=== PATIENT | female | born 1975 | race Caucasian/White ===

== ENCOUNTER 2021-11-16 03:06 | Day surgery (SDC) | payer BC, SELFPAY ==
[2021-11-09 15:41] VITALS: BMI 23.3
[2021-11-16 09:39] VITALS: BP 113/67; PULSE 65; RESP 18; TEMP 36.8; O2SAT 100; BMI 22.9
--- NOTE | 2021-11-16 09:41 | P.PNAN_ITS ---
Anes - Initial Pre Proc Eval Procedure: Operation Date: 11/16/21 10:30 Proposed Procedures p Colonoscopy - Saul Grande MD Date/Time: 11/16/21 09:41 Surgeon: Saul Grande MD Pre Op Diagnosis: change in bowel habits Patient Data Age: 46 Gender: F Height: 1.65 m Weight: 62.6 kg Last Vital Signs Temp 36.8 C 11/16/21 09:39 Pulse 65 11/16/21 09:39 Resp 18 11/16/21 09:39 BP 113/67 11/16/21 09:39 Pulse Ox 100 11/16/21 09:39 Allergies Allergy/AdvReac Type Severity Reaction Status Date / Time No Known Allergies Allergy Verified 11/16/21 09:38 Home Medications Medication Instructions Recorded Confirmed Type bromfenac [Prolensa] 1 drp EACH EYE HS 11/09/21 11/16/21 History prednisolone acetate [Omnipred] 2 drp EACH EYE Q12H 11/09/21 11/16/21 History Patient hx anesthesia problems: none Family hx anesthesia problems: none Results Review: All pre-operative results and documents have been reviewed as part of the pre-operative evaluation. [facility] Surgical History Surgical History (Updated 11/16/21 @ 07:46 by Percy Medellin DO) History of Social History Social History Smoking packs per day: 0.5 Smoking cigarettes per day: 10.0 Years smoked: 15 Smoking pack-years: 7.50 Smoking status: Former smoker Smoking end date: 12/02/08 Living arrangements: with family Spiritual care concerns: No Anes - Eval Final PreProcedure Day of Procedure 11/16/21 09:41 Patient weight: normal Heart: regular rate and rhythm Lungs: clear to auscultation and normal air movement Airway: Mallampati scale class II Neurological: alert and oriented Last oral intake: >/= 8 hours ASA classification: II Emergent: no Anesthetic plan: proceed Anesthesia type and monitoring: general GIVS and standard monitoring Results Review: All pre-operative results and documents have been reviewed as part of the pre-operative evaluation. Informed Consent: The patient's anesthetic plan and its attendant risks and benefits were discussed with the patient/family/POA. Questions were solicited and answers provided to the satisfaction of the patient/family/POA.
[2021-11-16] MEDS: LACTATED RINGERS 1,000 ML 150 ML IV CONT (09:42)
--- NOTE | 2021-11-16 10:03 | WPDGICN ---
Assessment and Plan Assessment and plan (1) Change in bowel habit: Code(s): R19.4 - Change in bowel habit Status: Acute Assessment and Plan: Patient reports a change in her bowel habit. Plan is for colonoscopy to evaluate why stools are narrow caliber. This may represent spasms. Recommend fiber supplementation to be taken routinely. Further recommendations will be given after endoscopy. GI Consult Note Consult date/time: 11/16/21 10:03 HPI: Brittany Pedraza is a 46 year old female Presents for colonoscopy. Patient has never had a colonoscopy previously. Patient reports 3 or 4 years ago had an intestinal parasite. This caused her to have significant diarrhea. This ultimately was treated with 2 courses of antibiotics with resolution of symptoms. Over the last several years however she notices a change in her bowel habits. Her chest bowel habits now have a narrow caliber to them. She denies abdominal pain she has had no weight loss. She has had no bleeding. Her family history is significant her father had Crohn's disease. No other family members have inflammatory bowel disease nor polyps nor cancer. Review of Systems Review of Systems: All systems reviewed & are unremarkable except as noted in HPI and below [facility] Surgical History Surgical History (Updated 11/16/21 @ 07:46 by Percy Medellin, ) History of Social History Social History Smoking packs per day: 0.5 Smoking cigarettes per day: 10.0 Years smoked: 15 Smoking pack-years: 7.50 Smoking status: Former smoker Smoking end date: 12/02/08 Living arrangements: with family Spiritual care concerns: No Meds Home Medications and Allergies Home Medications Medication Instructions Recorded Confirmed Type bromfenac [Prolensa] 1 drp EACH EYE HS 11/09/21 11/16/21 History prednisolone acetate [Omnipred] 2 drp EACH EYE Q12H 11/09/21 11/16/21 History Allergies Allergy/AdvReac Type Severity Reaction Status Date / Time No Known Allergies Allergy Verified 11/16/21 09:38 Vital Signs Vital Signs - 24 hr 11/16/21 09:39 Temperature 98.2 F Pulse Rate 65 Respiratory Rate 18 Blood Pressure 113/67 Pulse Oximetry 100 Exam Narrative: Physical exam reveals patient to be alert. Vital signs stable. HEENT exam is unremarkable. Patient is anicteric. Lungs are clear to auscultation and percussion. Heart is without murmur or extra sounds. Abdominal exam bowel sounds are present soft nontender with no organomegaly. Digital external rectal exam is normal.
[2021-11-16 10:33] VITALS: BP 97/53; PULSE 78; RESP 19; O2SAT 97
[2021-11-16 10:43] VITALS: BP 119/73; PULSE 75; RESP 23; O2SAT 95
[2021-11-16 10:53] VITALS: BP 128/76; PULSE 72; RESP 17; O2SAT 97
== END 2021-11-16 11:07 | disposition home or self-care (01) ==
PROVIDERS: PCP Internal Medicine; Visit Provider Internal Medicine Gastroenterology
PROC: 0DJD8ZZ Inspection of Lower Intestinal Tract, Via Natural or Artificial Opening Endoscopic (ICD-10-PCS; CPT 45378; principal; 2021-11-16 10:30)
DX: Z12.11 Encounter for screening for malignant neoplasm of colon (principal); R19.4 Change in bowel habit; Z87.891 Personal history of nicotine dependence
CPT/HCPCS: 45378; J2704; J7120

== ENCOUNTER 2023-09-11 15:51 | Outpatient (CLI) | payer BC, SELFPAY ==
--- NOTE | ~2023-09-11 | CT_ITS ---
EXAMINATION: CT soft tissue neck w con DATE: 09/11/2023 16:23 INDICATION: Right supraclavicular mass. TECHNIQUE: Computed tomography (CT) of the neck was performed with 75 mL Omnipaque-350 intravenous co ntrast. Automated exposure control and iterative reconstruction technique were employed. The dose-belen gth product was 450.69 mGy-cm. COMPARISON: None FINDINGS: There is a mucous retention cyst in right maxillary sinus. There are nodules in the thyroid measuring up to 10 mm, likely not clinically significant. There is an infiltrative mass in right sup raclavicular region measuring 6.9 x 4.9 x 3.5 cm. There are enlarged right supraclavicular lymph node s. There is mild cervical spondylosis. IMPRESSION: 1. Right supraclavicular mass and lymphadenopathy suspicious for malignancy such as lymphoma, sarcoma , or metastatic disease. Ultrasound-guided core needle biopsy is recommended. Reviewed, dictated and finalized at location A. IMPRESSION: 1. Right supraclavicular mass and lymphadenopathy suspicious for malignancy suc h as lymphoma, sarcoma, or metastatic disease. Ultrasound-guided core needle bi opsy is recommended.
[2023-09-11 16:26] LABS: Hematocrit 33.5 % (35.0-49.0); Hemoglobin 11.6 g/dL (12.0-15.0); Mean Corpuscular HGB Conc 34.6 g/dL (32.0-36.0); Mean Corpuscular Hemoglobin 30.4 pg (27.0-31.0); Mean Corpuscular Volume 87.7 fL (78.0-102.0); Mean Platelet Volume 8.8 fl (9.2-11.8); Platelet Count Result 171 K/mm3 (150-420); Red Blood Count 3.82 M/mm3 (4.20-5.40); Red Cell Distribution Width 12.5 % (11.6-14.4); White Blood Count 3.4 K/mm3 (4.8-10.8)
[2023-09-11 16:53] LABS: Alanine Aminotransferase 20 U/L (14-59); Albumin Level 3.7 g/dL (3.4-5.0); Alkaline Phosphatase 68 U/L (46-116); Anion Gap 7 mmol/L (8-16); Aspartate Amino Transferase 16 U/L (15-37); Bilirubin,Total 0.7 mg/dL (0.00-1.00); Blood Urea Nitrogen 10 mg/dL (7-18); Calcium 8.7 mg/dL (8.5-10.1); Carbon Dioxide 28 mmol/L (21-32); Chloride 102 mmol/L (98-108); Estimated Glomerular Filt Rate > 60; Glucose 74 mg/dL (70-99); Lactate Dehydrogenase 172 U/L (81-234); Osmolality Calculated 282 mOsm/kg (285-295); Potassium 3.7 mmol/L (3.5-5.1); Sodium 137 mmol/L (136-145); Total Protein 5.9 g/dL (6.4-8.2)
[2023-09-11 17:08] LABS: Band Neutrophils Percent 0 % (0-6); Basophils Percent Manual 0 % (0-1); Eosinophils Percent Manual 0 % (1-6); Lymphocytes Absolute Manual 1.12 K/mm3 (1.1-4.5); Lymphocytes Percent Manual 33 % (18-44); Monocytes Absolute Manual 0.17 K/mm3 (0.1-0.90); Monocytes Percent Manual 5 % (3-9); Neutrophils Percent Manual 62 % (46-73); Platelet Estimate Adequate (Adequate); Total Cells Counted 100
== END 2023-09-11 15:52 | disposition home or self-care (01) ==
PROVIDERS: PCP Internal Medicine; Visit Provider Internal Medicine
DX: R22.1 Localized swelling, mass and lump, neck (principal); R59.0 Localized enlarged lymph nodes
CPT/HCPCS: 36415; 70491; 80053; 83615; 85025; Q9967

== ENCOUNTER 2025-02-05 15:34 | Outpatient (CLI) | payer BC, SELFPAY ==
--- NOTE | ~2025-02-05 | XR_ITS ---
CHEST RADIOGRAPH, PA AND LATERAL CLINICAL HISTORY: Cough/congestion x2 years . COMPARISON: None available TECHNIQUE: PA and lateral views of the chest. FINDINGS The cardiomediastinal silhouette is unremarkable. The lungs are clear. Visualized osseous structures and soft tissues are unremarkable. IMPRESSION: No focal infiltrate or effusion. Reviewed, dictated and finalized at location A. RATE DEALER
--- OUTSIDE RECORDS SUMMARY | 2025-02-05 15:39 | XMS_ITS | Clinical Summary ---
Author Organization [facility] Address [address] [place] [address] Care Team Providers Care Hide Tanner Name Role Phone Freddie Evans MD Primary Care Provider [phone] Allergies No known active allergies Medications hydroCHLOROthiaz yeison 25 MG tablet Take 1 tablet (25 mg total) by mouth every morning. 10 tablet 10/09/2021 Active Family History Medical History Relation Comments Breast Cancer Maternal Grandmother Relation Status Comments Maternal Grandmother Social History Tobacco Use Types Packs/Day Years Used Date Smoking Tobacco: Former Smokeless Tobacco: Never Alcohol Use Standard Drinks/Week Comments Not Currently 0 (1 standard drink = 0.6 oz pure alcohol) stopped a few weeks ago, weekend use Comments No Sex and Gender Information Value Date Recorded Sex Assigned at Not on file Legal Sex Female 9:01 PM COOKER TENDER Gender Identity Not on file Sexual Orientation Not on file Last Filed Vital Signs Vital Sign Reading Time Taken Comments Blood Pressure 126/88 10/09/2021 2:07 PM COOKER TENDER Pulse 64 10/09/2021 2:07 PM COOKER TENDER Temperature 36.5 C (97.7 F) 10/09/2021 2:07 PM COOKER TENDER Respiratory Rate 18 10/09/2021 2:07 PM COOKER TENDER Oxygen Saturation 100% 10/09/2021 2:07 PM COOKER TENDER Inhaled Oxygen Concentration - - Weight - - Height - - Body Mass Index - - Plan of Treatment Health Maintenance Due Date Last Done Comments Cervical Cancer Screening Pap Smear (Age 30 to 64) Every 3 Years 1973 Colorectal Cancer Screening Colonoscopy (10 Years) 1973 Annual Physical 1976 DTaP, Tdap and Td Vaccines (1 - Tdap) 1992 05/17/1978, 02/27/1974, 1973, Additional history exists Hepatitis B Vaccines (1 of 3 - 19+ 3-dose series) 1992 Cervical Cancer Screening Pap with HPV Testing (Age 30 to 64) Every 5 Years 2003 Cervical Cancer Screening with HPV 2003 Zoster Vaccines (1 of 2) 2023 COVID-19 Vaccine (1 - season) 2024 Influenza Adult (#1) 2024 Mammogram Screening 10/15/2025 10/15/2023, 08/29/2022, 08/23/2021, Additional history exists Hepatitis C Completed 10/09/2021 Meningococcal B Vaccine Aged Out No l onger eligible based on patient's age to complete this topic Meningococcal Vaccine Aged Out No valentino sara eligible based on patient's age to complete this topic Pneumococcal Vaccine: Pediatrics (0 to 5 Years) and At-Risk Patients (6 to 64 Years) Aged Out No longer eligible based on patient's age to complete this topic RSV Immunizations Under 20 Months Aged Out No longer eligible based on patient's age to complete this topic Procedures Procedure Name Priority Date/Time Associated Diagnosis Comments MG SCREENING W ELSY STEVE DIGI Routine 10/15/2023 2:52 PM COOKER TENDER Breast cancer screening HEPATITIS PANEL,ACUTE STAT 10/09/2021 12:47 PM COOKER TENDER from Last 3 Months or Most Recently Relevant to Health Maintenance Results * MG SCREENING W ELSY STEVE DIGI (10/15/2023 2:52 PM COOKER TENDER) Anatomical Region Laterality Modality Breast Bilateral Mammography 10/15/2023 3:58 PM COOKER TENDER Narrative 10/15/2023 3:58 PM COOKER TENDER Examination: Digital screening mammogram with CAD. Clinical history: Asymptomatic patient presents for routine screening. Comparison: 08/29/2022, 08/23/2021, 07/11/2020, 07/08/2019, 07/04/2016. Technique: Bilateral digital mammograms. The exam was interpreted with the use of a computer-aided detection (CAD) system. Additional 3-D tomosynthesis images were acquired. Tissue density: The breast tissue contains scattered fibroglandular densities. Findings: The breast tissue contains scattered fibroglandular densities. Benign-appearing calcification noted. No suspicious mass, microcalcification or area of architectural distortion can be identified. From a mammographic standpoint, routine followup in one year would seem adequate. IMPRESSION: No suspicious change since the previous exams. Recommendation: 1: Routine Screening Bilateral in 1 Year Assessment: ACR BI-RADS 2 - BENIGN FINDING(S) Ordered By: FREDDIE EVANS Interpreted By: Jhony Bueno MD, 10/15/2023 3:58 PM Freddie Evans MD MAMMO Final Result * HEPATITIS PANEL,ACUTE (10/09/2021 12:47 PM COOKER TENDER) HEPATITIS B SURFACE AG NON-REACT DEANA NON-REACT DEANA 10/10/2021 1:29 PM COOKER TENDER [facility] Comment:HBsAg NOT DETECTED. HEP B CORE IGM NON-REACT DEANA NON-REACT DEANA 10/10/2021 1:29 PM COOKER TENDER [facility] Comment: IgM ANTI HBc NOT DETECTED. DOES NOT EXCLUDE THE POSSIBILITY OF EXPOSURE TO OR INFECTION WITH HBV. NO RETEST REQUIRED. HIGH DOSES OF BIOTIN MAY INTERFERE WITH THIS TEST RESULT. CORRELATION TO CLINICAL HISTORY AND PRESENTATION RECOMMENDED. HAV IGM NON-REACT DEANA NON-REACT DEANA 10/10/2021 1:29 PM COOKER TENDER [facility] Comment: IgM ANTI HAV NOT DETECTED. DOES NOT EXCLUDE THE POSSIBILITY OF EXPOSURE TO OR INFECTION WITH HAV. LEVELS OF IgM ANTI HAV MAY BE BELOW THE CUTOFF IN EARLY INFECTION. HEPATITIS C AB NON-REACT DEANA NON-REACT DEANA 10/10/2021 1:29 PM COOKER TENDER [facility] Comment: ANTIBODIES TO HCV NOT DETECTED. DOES NOT EXCLUDE THE POSSIBILITY OF EXPOSURE TO HCV. 10/09/2021 12:4 7 PM COOKER TENDER Alexx Thompson MD LABORATORY Final Result [facility] [address] [place] [address], [id number] from Last 3 Months or Most Recently Relevant to Health Maintenance Insurance [facility] Care Teams Hide Tanner Relationship Specialty Start Date End Date Freddie Evans MD [address] [place] [address] PCP - General INTERNAL MEDICINE 10/09/21
--- OUTSIDE RECORDS SUMMARY | 2025-02-05 15:39 | XMS_ITS | Clinical Summary ---
Author Organization [place] [id number] Address [address] [place] [address] Care Team Providers Care Blister Rust Eradicator Name Role Phone Freddie Petersen MD Primary Care Provider [phone] Abner Flowers MD Unavailable [phone] Allergies Active Allergy Reactions Criticality Noted Date Comments Rituximab Itching Low 11/27/2023 Itchy ears, resolved after 20 mg of Pepcid Medications progesterone 50 mg/mL injection Inject into the muscle as instructed daily Active progesterone (PROMETRIUM) 100 mg capsule Take 1 capsule (100 mg total) by mouth daily Dosage unsure Active acyclovir (ZOVIRAX) 400 mg tabletIndicatio ns:[place] marginal zone B-cell lymphoma (HCC) Take 1 tablet (400 mg total) by mouth 2 (two) times a day For shingles prevention. 60 tablet 11 3 Active Additional Information Patient not taking.Reported on 03/25/2024 Active Problems Problem Noted Date Diagnosed Date Chemotherapy induced nausea and vomiting 023 [place] marginal zone B-cell lymphoma 10/23/2023 Supervision of other high ri sk pregnancies, unspecified trimester 06/16/2015 Overview (09/26/2023): Abnormal maternal glucose tolerance, antepartum 06/16/2015 Twin , twins dichorionic and diamniotic 04/22/2015 Immunizations Immunization Administration Dates Next Due DTP 05/17/1978,02/27/1974,1973 ,1973 MMR 07/08/2017,08/23/2014,08/29/1999 ,11/17/1974 OPV 07/04/1987,05/17/1978,08/11/1974 ,05/25/1974 Td, adsorbed 08/29/1999,08/11/1988 Tdap 06/06/2015,08/06/2014 Varicella 08/23/2014 Surgical History Surgery Date Site/Laterality Comments WISDOM TOOTH EXTRACTION SECTION x1 TYMPANOSTOMY TUBE PLACEMENT EXTERNAL FIXATION FOOT FRACTURE Medical History Medical History Date Comments Dental disease Ear problems Family History Medical History Relation Name Comments No Known Problems Brother Autoimmune disease Father Crohn's disease Father Sleep apnea Father Pancreatic cancer Maternal Grandfather Migraines Mother Heart attack Paternal Grandfather Colon cancer Paternal Grandmother No Known Problems Sister 1 No Known Problems Sister 2 Relation Name Status Comments Brother Alive Father Alive Maternal Grandfather Maternal Grandmother Alive Mother Alive Paternal Grandfather Paternal Grandmother Sister 1 Alive Sister 2 Alive Social History Tobacco Use Types Packs/Day Years Used Date Smoking Tobacco: Former Cigarettes 1 15 Smokeless Tobacco: Never Tobacco Cessation:Counseling Given: Not Answered Comments:15 years smoked when younger, Quit 14 years, stressed smoked 5 months ago, nothing for last 2 months AUDIT-C Answer Date Recorded Q1: How often do you have a drink containing alc ohol? Monthly or less 09/26/2023 Average Number of Drinks Not on file 023 Frequency of Binge Drinking Not on file 09/02 Personal Safety Answer Date Recorded Getting School Help Needed Not on file 11/11 Comments No Sex and Gender Information Value Date Recorded Sex Assigned at Not on file Legal Sex Female 3:46 AM HORSERADISH GRINDER Gender Identity Not on file Sexual Orientation Not on file Obstetrics History Last Filed Vital Signs Vital Sign Reading Time Taken Comments Blood Pressure 107/72 04/22/2024 10:10 AM CDT Pulse 65 04/22/2024 10:10 AM CDT Temperature 36.4 C (97.5 F) 04/22/2024 10:06 AM CDT Respiratory Rate 16 04/22/2024 10:0 6 AM CDT Oxygen Saturation 99% 04/22/2024 10: 10 AM CDT Inhaled Oxygen Concentration - - Weight 71.6 kg (157 lb 12.8 oz) 024 10:06 AM CDT Height 166 cm (5' 5.35 ) 11/27/2023 9:39 AM HORSERADISH GRINDER Body Mass Index 25.98 11/27/2023 9:39 AM HORSERADISH GRINDER Plan of Treatment Health Maintenance Due Date Last Done Comments Breast Cancer Screening-Mammogram 1973 Cervical Cancer Screening 1973 Colon Cancer Screening-Colonoscopy 1973 Depression Screening 1973 Regular Well Visit/Exam 18-64 1991 Pneumococcal vaccine <65 (1 of 2 - PCV) 1992 Zoster Vaccine (1 of 2) 10/18/2014 Influenza Vaccine (#1) 2024 DTaP/Tdap/Td Vaccine (7 - Td or Tdap) 06/06/2025 06/06/2015, 08/06/2014, 08/29/1999, Additional history exists Hepatitis B Screening Completed 10/23/2023 Hepatitis C Screening Completed 10/23/2023 Procedures Procedure Name Priority Date/Time Associated Diagnosis Comments HEPATITIS C ANTIBODY Routine 10/23/2023 12:38 PM HORSERADISH GRINDER [place] marginal zone B-cell lymphoma (HCC) from Last 3 Months or Most Recently Relevant to Health Maintenance Results * Hepatitis C antibody Blood (10/23/2023 12:38 PM HORSERADISH GRINDER) Hep C Ab Nonreactive Nonreactive [facility] Comment:Antibodies to HCV no t detected. Does NOT exclude the possibility of recent exposure to HCV. Current interpretive data was last revised on 22 Blood 10/23/2023 12:3 8 PM HORSERADISH GRINDER 10/23/2023 1:14 PM HORSERADISH GRINDER Naomi Arguelles NP LAB MICROBIOLO GY - GENERAL ORDERABLES Final Result [facility] [place] [address] from Last 3 Months or Most Recently Relevant to Health Maintenance Insurance [employer] [place] [employer] [place] Care Teams Blister Rust Eradicator Relationship Specialty Start Date End Date Freddie Petersen MD PCP - General Internal Medicine 09/14/23 Abner Flowers MD [address] [facility] [address] [place] [id number] Medical Oncologist/Labor Expediter Medical Oncology 10/22/23
--- OUTSIDE RECORDS SUMMARY | 2025-02-05 15:39 | XMS_ITS | Patient Health Summary ---
Author Organization [facility] Address [address] [place] [address] Care Team Providers Care Recordist Chief Name Role Phone Unavailable Primary Care Provider Unavailabl e Note from [facility]non-owned Affiliates and Associated Physician Practices is amultiple site organization consisting of ambulatory clinics and hospital sitesin [place], [place], [place]. This disclosure is being madepursuant to the Care Everywhere program and may not contain all information available regarding this patient. Last updated 18.[facility] Allergies No known active allergies Medications * Be aware that medications may not be up to date on this document. Alwaysverify current medications with the patient. * Vit-Fe Fumarate-FA ( VITAMIN) 28-0.8 MG tablet Take 1 Tab by mouth once daily. Active Problems Problem Noted Date Diagnosed Date Abnormal maternal glucose tolerance, antepartum 06/16/2015 Supervision of other high-risk 015 Twin , twins dichorionic and diamniotic 04/22/2015 Advanced maternal age (AMA) in 015 Social History Tobacco Use Types Packs/Day Years Used Date Smoking Tobacco: Never Assessed Sex and Gender Information Value Date Recorded Sex Assigned at Not on file Gender Identity Not on file Sexual Orientation Not on file Last Filed Vital Signs Vital Sign Reading Time Taken Comments Blood Pressure 131/75 06/14/2015 1:09 PM CDT Pulse 87 04/22/2015 2:42 PM CDT Temperature - - Respiratory Rate - - Oxygen Saturation - - Inhaled Oxygen Concentration - - Weight 67.1 kg (147 lb 14.4 oz) 04/22/2015 2:42 PM CDT Height 165.1 cm (5' 5 ) 04/22/2015 2:42 PM CDT Body Mass Index 24.61 04/22/2015 2:42 PM CDT Procedures * SONOGRAM - COMPLETE(Performed 05/27/2015) Performed for screening for growth retardation using ultrasonics ([facility]), Twin , twins dichorionic and diamniotic (HCC), Advanced maternal age (AMA) in * SONOGRAM - COMPLETE(Performed 04/22/2015) Performed for screening for growth retardation using ultrasonics ([facility]), Twin , twins dichorionic and diamniotic ([facility]) Results * SONOGRAM - COMPLETE (05/27/2015 11:22 AM CDT) Only the most recent of2 resultswithin the time period is included. Anatomical Region Laterality Modality Other 05/27/2015 11:2 2 AM CDT Narrative 05/27/2015 4:11 PM CDT [facility] [place] PHONE: FAX: FETUS A Pat. Name: NAOMI HENDRICKSON. No: [id number] Study Date: 05/27/2015 11:22am , Age: 09 1975, 39 Pregnancies: 1 Height: 65 in Weight: 148 lb LMP: Unknown GA by 1st: 30w3d GA by US: 31w3d GA Selected: 30w3d (From Known E) PILLO: 08/02/2015 Referring MD: GUERITA HAWTHORNE MD Radar Engineering Teacher: Yessi Farley RDMS BMI: 24.63 Hist/Ind: Advanced Maternal Age IVF-Donor Eggs Dichorionic Twins MEASUREMENTS & AGE GROWTH EVALUATION Measurement GA Range Srce %for GA Ratios ----- ---- ------- BPD 7.9 cm 31w4d (29j5a-83u0t) Hadl BPD 66% FL/BPD 0.74 (0.71 - 0.87) HC 30.0 cm 33w1d (42n0r-97w1a) Hadl HC 92% FL/AC 0.22 (0.20 - 0.24) AC 26.5 cm 30w4d (98c8i-00t0o) Hadl AC 53% HC/AC 1.13 (0.97 - 1.16) FL 5.8 cm 30w2d (22s0a-27t2i) Hadl FL 48% CI 0.76 (0.70 - 0.86) HL 5.4 cm 31w3d (39n2q-63a1u) Noel HL 67% GA for sonogram 31w3d (65b2t-02a4d) Weight Estimate: based on (HL,BPD,HC,AC,FL) Avg Weight: 1647 gm (0381-8743) Hadlo : 3lbs, 10oz Normal: 1641 gm (6550-7110) Hadlo Wt% 51% for 30w3d Cervical Length: 2.8 cm Heart Rate: 153 bpm Amniotic Fluid Index: 04.4cm (Deepest Pocket) CLINICAL SUMMARY Study Number:2 This is a Diamniotic/Dichorionic twin . Twin A is female, vertex on the maternal left, with a posterior placenta. Twin B is female, breech on the maternal right, with a anterior placenta. A chorionic peak was previously seen. The measurements are appropriate for both twins. The difference in estimated weight is 12%. The amniotic fluid appears normal for both twins. The deepest vertical pocket for Twin A measures 5.03 cm and for twin B measures 4.4 cm. No major malformations are visualized on either twin. The patient was advised that ultrasound does not allow detection of all structural or chromosomal abnormalities. TRANSVAGINAL ULTRASOUND: The transvaginal cervical length measures 2.8cm with no funneling identified. No change is seen with fundal pressure. IMPRESSION: Dichorionic, Diamniotic twins, live, IUP 30w3d Appropriate growth for both twins Normal discordance: 12% Normal amniotic fluid for each twin Reassuring cervical length RECOMMEND: Follow up ultrasound in 3 - 4 weeks Thank you for allowing us the opportunity to care for your patient. Don Fairchild MD <Electronic Signature> 05/27/2015 04:10pm FETUS B Pat. Name: NAOMI HENDRICKSON Pat. No: [id number] Study Date: 05/27/2015 11:22am , Age: 09 1975, 39 Pregnancies: 1 Height: 65 in Weight: 148 lb LMP: Unknown GA by 1st: 30w3d GA by US: 29w4d GA Selected: 30w3d (From Known E) PILLO: 08/02/2015 Referring MD: GUERITA HAWTHORNE MD Radar Engineering Teacher: Yessi Farley RDMS Hist/Ind: Advanced Maternal Age IVF-Donor Eggs Dichorionic Twins MEASUREMENTS & AGE GROWTH EVALUATION Measurement GA Range Srce %for GA Ratios ----- ---- ------- BPD 7.8 cm 31w2d (62p5p-03f1f) Hadl BPD 62% FL/BPD 0.71 (0.71 - 0.87) HC 27.7 cm 30w2d (26s5q-62j8o) Hadl HC 48% FL/AC 0.22 (0.20 - 0.24) AC 25.6 cm 29w5d (07c2i-03m1u) Hadl AC 36% HC/AC 1.08 (0.97 - 1.16) FL 5.5 cm 29w1d (75o2w-16x6n) Hadl FL 24% CI 0.81 (0.70 - 0.86) HL 4.7 cm 27w3d (84a9t-48t6g) Noel HL <05 GA for sonogram 29w4d (64a9o-96n5q) Weight Estimate: based on (HL,BPD,HC,AC,FL) Avg Weight: 1443 gm (8063-2762) Hadlo : 3lbs, 2oz Normal: 1641 gm (1581-9661) Hadlo Wt% 27% for 30w3d Cervical Length: 2.8 cm Heart Rate: 134 bpm Amniotic Fluid Index: 05.0cm (Deepest Pocket) CLINICAL SUMMARY Don Fairchild MD <Electronic Signature> 05/27/2015 04:10pm Guerita Hawthorne MD [facility] ORDERABLES
--- OUTSIDE RECORDS SUMMARY | 2025-02-05 15:39 | XMS_ITS | Referral Summary ---
Author Organization [facility] Address [address] [place] [address] Care Team Providers Care Transplant Coordinator Name Role Phone Unavailable Primary Care Provider Unavailabl e Source Comments [facility],non-owned Affiliates and Associated Physician Practices is amultiple site organization consisting of ambulatory clinics and hospital sitesin [place], [place], [place] and [place]. This disclosure is being madepursuant to the Care Everywhere program and may not contain all information available regarding this patient. Last updated 18.[facility] Allergies No known active allergies Medications * Be aware that medications may not be up to date on this document. Alwaysverify current medications with the patient. Medication Sig Dispensed Refills Start Date End Date Status Vit-Fe Fumarate-FA ( VITAMIN) 28-0.8 MG tablet Take 1 Tab by mouth once daily. Active Active Problems Problem Noted Date Diagnosed Date Abnormal maternal glucose tolerance, antepartum 06/16/2015 Supervision of other high-risk 015 Overview (10/09/2015): Twin , twins dichorionic and diamniotic 04/22/2015 [...] Mass Index 24.61 04/22/2015 2:42 PM CDT Plan of Treatment Not on file
--- OUTSIDE RECORDS SUMMARY | 2025-02-05 15:39 | XMS_ITS | Referral Summary ---
Author Organization [place] [id number] Address [address] [place] [address] Care Team Providers Care Wire Harness Assembler Name Role Phone Freddie Petersen MD Primary Care Provider Abner Flowers MD Unavailable [phone] Allergies Active Allergy Reactions Criticality Noted Date [...] Td, adsorbed 08/29/1999,08/11/1988 Tdap 06/06/2015,08/06/2014 Varicella 08/23/2014 Social History Tobacco Use Types Packs/Day Years [...] on file Legal Sex Female 3:46 AM [employer] Gender Identity Not on file Sexual Orientation [...] cm (5' 5.35 ) 11/27/2023 9:39 AM [employer] SUPER[employer] Body Mass Index 25.98 11/27/2023 9:39 AM [employer]INO [employer] SUPERVIS[employer] Plan of Treatment Not on file Procedures Procedure Name Priority Date/Time Associated Diagnosis Comments HEPATITIS C ANTIBODY Routine 10/23/2023 12:38 PM [employer] SUPERVISOR [place] marginal zone B-cell lymphoma (HCC) from Last 3 Months or Most Recently Relevant to Health Maintenance Results * Hepatitis C antibody Blood (10/23/2023 12:38 PM [employer] SUPERVIS[employer]) Hep C Ab Nonreactive Nonreactive [facility] Comment:Antibodies to HCV no t detected. Does NOT exclude the possibility of recent exposure to HCV. Current interpretive data was last revised on 22 Blood 10/23/2023 12:3 8 PM [employer]INO [employer] SUPERVISOR 10/23/2023 1:14 PM [employer] SUPER[employer]OR Naomi Arguelles NP LAB MICROBIOLO GY - GENERAL ORDERABLES Final Result [facility] Department [place] [address] from Last 3 Months or Most Recently Relevant to Health Maintenance Insurance [email or web address] Care Teams Wire Harness Assembler Relationship Specialty Start Date End Date Freddie Petersen MD PCP - General Internal Medicine 09/14/23 Abner Flowers MD [id number] [facility] [address] [place] [id number] Medical Oncologist/[facility] 10/22/23
--- OUTSIDE RECORDS SUMMARY | 2025-02-05 15:39 | XMS_ITS | Clinical Summary ---
Author Organization [facility] Address [address] [place] [address] Care Team Providers Care Senior Payroll Specialist Name Role Phone Unavailable Primary Care Provider Unavailabl e Source Comments [facility],non-owned Affiliates and Associated Physician Practices is amultiple site organization consisting of ambulatory clinics and hospital sitesin [place], [place], [place] and [place]. This disclosure is being madepursuant to the Care Everywhere program and may not contain all information available regarding this patient. Last updated 18.[facility] Allergies No known active allergies Medications * [...] 04/22/2015 2:42 PM CDT Plan of Treatment Health Maintenance Due Date Last Done Comments COLOGUARD (AGES 45-75) - COL ON CA SCREENING 1973 COLON MONITORING 1973 COLONOSCOPY - COLON CA SCREENING 1973 CT COLONOGRAPHY - COLON CA SCREENING 1973 Colorectal Cancer Screening 1973 FIT - COLON CA SCREENING 1973 FLEX SIG - COLON CA SCREENING 1973 LIPID TESTING 1973 MAMMOGRAM 1973 PAP SMEAR 1973 HIV SCREENING 1988 HEPATITIS C SCREENING 08/20/1991 DTAP/TDAP/TD VACCINES (1 - Tdap) 1992 HEPATITIS B VACCINE (1 of 3 - 19+ 3-dose series) 1992 PNEUMOCOCCAL VACCINE 50+ (1 of 1 - PCV) 2023 ZOSTER VACCINE (1 of 2) 2023 COVID-19 VACCINE (1 - 2023-2 5 season) 2024 INFLUENZA VACCINE (#1) 2024 DEPRESSION SCREENING 12/02/2024 HIB VACCINE Aged Out No longer eligi ble based on patient's age to complete this topic HPV VACCINE Aged Out No longer eligi ble based on patient's age to complete this topic MENINGOCOCCAL (Group B) VACCINE Aged Out No longer eligible based on patient's age to complete this topic MENINGOCOCCAL VACCINE Aged Out No valentino sara eligible based on patient's age to complete this topic PNEUMOCOCCAL VACCINE Aged Out No long er eligible based on patient's age to complete this topic
--- OUTSIDE RECORDS SUMMARY | 2025-02-05 15:39 | XMS_ITS ---
Author Organization [facility] [address] Address [address] [place] [address] Care Team Providers Care Machine Printer Hose Name Role Phone Freddie Petersen MD Primary Care Provider [phone] Abner Flowers MD Unavailable Active Problems Problem Noted Date Diagnosed Date Chemotherapy induced nausea and vomiting 023 [place] marginal zone B-cell lymphoma 10/23/2023 Supervision of other high ri sk pregnancies, unspecified trimester 06/16/2015 Overview (09/26/2023): Abnormal maternal glucose tolerance, antepartum 06/16/2015 Twin , twins dichorionic and diamniotic 04/22/2015 Current Treatment and Therapy Plans Hydration Therapy Plan* Plan Start Date:03/25/2024 Plan Provider:Abner Flowers MD Linked Problems [place] marginal zone B-cell l ymphoma (HCC) Treatment Medications No medications scheduled. Past Treatment and Therapy Plans Oncology Chemotherapy Treatment Plan Name Start Date Discontinue Date Treatment Medications Discontinue Reason Plan Provider Cycles Bendamustine / RiTUXimab 28 Day Cycles - NHL 11/27/20 23 04/22/2024 bendamustine (BENDEKA)bendam ustine (BENDEKA) IVPB in 50 mLriTUXimab-pvv r (RUXIENCE)riTUX imab-pvvr (RUXIENCE) IVPB in 500 mL Therapy Complete Abner Flowers MD 6 of 6 cycles started
== END 2025-02-05 15:35 | disposition home or self-care (01) ==
LOC: CHSIMG 15:36
PROVIDERS: PCP Internal Medicine; Visit Provider Internal Medicine
DX: R05.9 Cough, unspecified (principal)
CPT/HCPCS: 71046